=== PATIENT | male | born 1940 | race Caucasian/White ===

== ENCOUNTER 2022-11-19 08:32 | Day surgery (SDC) | payer OTHER ==
[~2022-11-19] VITALS: Ht 167.6 cm; Wt 103.6 kg
[~2022-11-19 08:32] MED LIST: ATOR40TA PO; Aspir 8181 MG PO; CALCIUM CIT 311 EACH PO; CLOP75 PO; GABA100 PO; LOSA25 PO; METO25ER; Norco 5-325 Ta1 EACH PO; Prinivil10 MG PO; Revatio20 MG PO; TICA90TA PO
--- NOTE | 2022-11-19 09:25 | NUR ---
CRACKLES AUSCULTATED TO POSTERIOR RIGHT LOWER LOBE. DR JACOB NOTIFIED.
--- NOTE | 2022-11-19 17:58 | NUR ---
SHIFT SUMMARY POD [address] SUMMERS. PATIENT ARRIVED TO ROOM AT 1400 FROM PACU. DROWSY, POST OP VITALS STABLE. MEDICATED FOR PAIN PER EMAR. LEFT HIP INCISION C/D/I. PATIENT NOT OUT OF BED AT THIS TIME AND NO VOID YET, WILL CONTINUE TO MONITOR. TOLERATING REGULAR DIET AND LIQUIDS. WIGGLES LEFT TOES AND ANKLE, REPORTS FULL SENSATION TO LEG.
[2022-11-20 04:23] LABS: BASOPHILS ABSOLUTE AUTO 0.03 K/mm3 (0.00-0.23); BASOPHILS PERCENT AUTO 0 % (0-2); EOSINOPHILS PERCENT AUTO 0 % (0-6); Hematocrit 39.9 % (37.0-53.0); Hemoglobin 13.5 g/dL (13.5-17.5); IMMATURE GRAN ABSOLUTE AUTO 0.12 K/mm3 (0.00-0.10); IMMATURE GRAN PERCENT AUTO 1 % (0-1); LYMPHOCYTES PERCENT AUTO 9 % (21-46); MONOCYTES ABSOLUTE AUTO 1.45 K/mm3 (0.16-1.47); MONOCYTES PERCENT AUTO 7 % (4-13); Mean Corpuscular HGB 30.8 pg (26.0-34.0); Mean Corpuscular HGB Conc 33.8 g/dL (31.5-36.5); Mean Corpuscular Volume 91 fL (80-100); NEUTROPHILS ABSOLUTE AUTO 16.33 K/mm3 (1.96-9.15); NEUTROPHILS PERCENT AUTO 83 % (41-73); Platelet Count 198 K/mm3 (150-400); RDW Standard Deviation 47.4 fL (35.1-46.3); Red Blood Cell Count 4.39 M/mm3 (4.30-5.90); White Blood Cell Count 19.63 K/mm3 (4.00-11.30)
--- NOTE | 2022-11-20 04:34 | NUR ---
SHIFT SUMMARY NO ACUTE CHANGES. PT RESTED WELL IN RECLINER CHAIR. DRESSING TO LEFT HIP REMAINS CDI WITH POLAR PACK IN PLACE. 2 KADIE/TYLENOL/TORADOL FOR PAIN MANAGEMENT. UP WITH 1 MINIMAL ASSIST USING FWW + GB TO BRP. VOIDING. LEILA PO. PLAN FOR PT/OT EVAL TODAY AND DISCHARGE HOME. USES CALL LIGHT APPROPRIATELY.
[2022-11-20 04:55] LABS: Bun/Creatinine Ratio 16.8 (12.0-20.0); Calcium, Blood 8.5 mg/dL (8.5-10.1); Creatinine, Blood 1.13 mg/dL (0.60-1.20); Potassium, Blood 4.9 mmol/L (3.5-5.5)
[2022-11-20] MEDS ORDERED: ACET500 PO (09:50)
[2022-11-20] MEDS ORDERED: OXYC5 PO (09:50)
--- NOTE | 2022-11-20 10:47 | NUR ---
DISCHARGE SUMMARY PATIENT ALERT AND ORIENTED. SBA TO AMBULATE IN ROOM AND HALLS WITH FWW. CLEARED BY PHYSICAL THERAPY. TOLERATING REGULAR DIET AND LIQUIDS. VOIDING WELL. INCISION TO LEFT HIP WNL AND C/D/I. PAIN CONTROLLED WITH PO PAIN MEDS. DISCHARGE ORDER IN CHART. DISCHARGE EDUCATION GIVEN ON NEW MEDS, ACTIVITY, INCISION CARE, AND FOLLOW UP APPTS WITH PT AND ORTHO. IV'S DC'D WNL. PATIENT LEFT UNIT FOR HOME WITH SPOUSE VIA WHEELCHAIR AT 1040.
== END 2022-11-20 10:48 | disposition home or self-care (01) ==
LOC: ORSCMMR 08:32 → ORD 10:45 → ORSCMMR 10:45 → SURS 15:27 → ORSCMMR 11-20 10:48 → ORD 01-14 07:30
PROVIDERS: Orthopaedic Surgery
PROC: 0SRB0JA Replacement of Left Hip Joint with Synthetic Substitute, Uncemented, Open Approach (ICD-10-PCS; principal; 2022-11-19 10:45)
DX: M16.12 Unilateral primary osteoarthritis, left hip (principal); I10 Essential (primary) hypertension; Z85.46 Personal history of malignant neoplasm of prostate; E66.9 Obesity, unspecified; Z68.34 Body mass index [BMI] 34.0-34.9, adult; I25.10 Atherosclerotic heart disease of native coronary artery without angina pectoris; Z87.891 Personal history of nicotine dependence; E78.00 Pure hypercholesterolemia, unspecified; Z79.899 Other long term (current) drug therapy
CPT/HCPCS: 36415; 72170; 80048; 83735; 85025; 97110; 97116; 97161; 97530; A9270; C1713; C1776; J0171; J0690; J0735; J1100; J1885; J2250; J2405; J2704; J2795; J3010; J7120

== ENCOUNTER 2023-07-09 11:31 | Observation (INO) | payer OTHER ==
[~2023-07-09] VITALS: Ht 170.2 cm; Wt 101.8 kg
[2023-07-09] VITALS (14 sets, daily range): BP systolic 103–150; BP diastolic 56–76
[~2023-07-09 11:31] MED LIST changes: +ACET500 PO; +OXYC5 PO
--- NOTE | 2023-07-09 12:07 | NUR ---
ARRIVAL TO SURGICAL FLOOR ALERT, ORIENTED. STEADY GAIT. AMBULATED TO UNIT. REPORTS ONLY SMALL AMOUNT OF WATER THIS AM w/ MORNING PILLS. HAS NOT ATE OR DRANK. SINCE LAST NIGHT OTHER THAN THAT. DR LU UPDATED & DR ERICKSON NOTIFIED.
[2023-07-09] MEDS ORDERED: Norco 5-325 Ta1 EACH PO (12:10)
--- NOTE | 2023-07-09 13:33 | NUR ---
[facility]
--- NOTE | 2023-07-09 15:47 | NUR ---
07/09/23 1547 Randi Flynn CHOLANGIOGRAM COMPLETED. ISOVUE 300 USED FOR CONTRAST.
--- NOTE | 2023-07-09 17:09 | NUR ---
POST OP RETURN TO SURGICAL UNIT PLEASANT & ALERT. ABD SOFT, BLOATED w/ 4 LAP SITES COVERED w/ GAUZE & TEGADERM. NO DRNG OR SHADOWING NOTED. LUNGS CLEAR BUT DIMINISHED IN BASES. DENIES N/V; CLEAR LQ's GIVEN. DENIES PAIN.
[2023-07-10 00:35] VITALS: BP 136/70
[2023-07-10 03:17] VITALS: BP 115/61
--- NOTE | 2023-07-10 04:13 | NUR ---
SHIFT SUMMARY NO ACUTE CHANGES TO REPORT OVERNIGHT, PT POD 0 LAP NAM. HE DONE WELL OVERNIGHT, HE HAS VOIDED AND IS TOLEARING PO INTAKE. PT DENIES PAIN. RESTS T/O THE SHIFT AND DENIES NEEDS. LAP SITES WNL. PLAN IS FOR DC TODAY.
[2023-07-10 05:14] LABS: Albumin, Blood 2.9 g/dL (3.4-5.0); Albumin/Globulin Ratio 0.8 (0.8-1.8); Bilirubin, Total 0.5 mg/dL (0.1-1.0); Bun/Creatinine Ratio 17.7 (12.0-20.0); Calcium, Blood 8.8 mg/dL (8.5-10.1); Creatinine, Blood 1.13 mg/dL (0.60-1.20); Globulin, Blood 3.8 g/dL (2.2-4.0); Potassium, Blood 4.6 mmol/L (3.5-5.5); Total Protein, Blood 6.7 g/dL (6.4-8.2)
[2023-07-10 07:19] VITALS: BP 120/59
--- NOTE | 2023-07-10 09:23 | NUR ---
DISCHARGE EATING, DRINKING, & PASSING GAS. DENIES PAIN. ESCORTED OUT VIA WC.
== END 2023-07-10 09:27 | disposition home or self-care (01) ==
LOC: SURS 11:35 → UNDOADMOB 11:50 → SURS 11:50
PROVIDERS: Surgery; ADMIT Internal Medicine
PROC: 0FT44ZZ Resection of Gallbladder, Percutaneous Endoscopic Approach (ICD-10-PCS; principal; 2023-07-09 14:30)
PROC: BF121ZZ Fluoroscopy of Gallbladder using Low Osmolar Contrast (ICD-10-PCS; principal; 2023-07-09 14:30)
DX: K80.00 Calculus of gallbladder with acute cholecystitis without obstruction (principal); I25.10 Atherosclerotic heart disease of native coronary artery without angina pectoris; E78.5 Hyperlipidemia, unspecified; I10 Essential (primary) hypertension; Z87.891 Personal history of nicotine dependence; R10.11 Right upper quadrant pain; R10.13 Epigastric pain; K76.0 Fatty (change of) liver, not elsewhere classified; R93.2 Abnormal findings on diagnostic imaging of liver and biliary tract
CPT/HCPCS: 36415; 74300; 76705; 80053; 85025; 88304; 93005; 93010; A9270; C1894; G0378; G0379; J0694; J1100; J1885; J2250; J2405; J2704; J2710; J3010; J7120

== ENCOUNTER 2023-07-30 08:59 | Day surgery (SDC) | payer OTHER ==
[~2023-07-30] VITALS: Ht 170.2 cm; Wt 96.7 kg
[2023-07-30 11:01] VITALS: BP 97/66
== END 2023-07-30 10:58 | disposition home or self-care (01) ==
LOC: ORSCSDS 08:59
PROVIDERS: Surgery
PROC: 0DB58ZX Excision of Esophagus, Via Natural or Artificial Opening Endoscopic, Diagnostic (ICD-10-PCS; principal; 2023-07-30 10:15)
DX: K21.9 Gastro-esophageal reflux disease without esophagitis (principal); R10.13 Epigastric pain; C15.9 Malignant neoplasm of esophagus, unspecified; K44.9 Diaphragmatic hernia without obstruction or gangrene; I10 Essential (primary) hypertension; E78.5 Hyperlipidemia, unspecified; Z87.891 Personal history of nicotine dependence; Z79.899 Other long term (current) drug therapy; C78.7 Secondary malignant neoplasm of liver and intrahepatic bile duct; I70.0 Atherosclerosis of aorta; I25.10 Atherosclerotic heart disease of native coronary artery without angina pectoris; I51.7 Cardiomegaly; K76.9 Liver disease, unspecified; K57.30 Diverticulosis of large intestine without perforation or abscess without bleeding; D73.89 Other diseases of spleen; K76.89 Other specified diseases of liver; M47.819 Spondylosis without myelopathy or radiculopathy, site unspecified; Z95.1 Presence of aortocoronary bypass graft; Z96.642 Presence of left artificial hip joint
CPT/HCPCS: 70491; 71260; 74177; 88305; 88360; J2704; J7120; Q9967

== ENCOUNTER 2023-08-15 07:24 | Day surgery (SDC) | payer OTHER ==
[~2023-08-15] VITALS: Ht 170.2 cm; Wt 90.0 kg
[2023-08-15 09:57] VITALS: BP 104/65
--- NOTE | 2023-08-15 10:08 | NUR ---
08/15/23 Kaci Lua PT'S CALLED [facility] TO SPEAK TO LC PER DR LU BUT WAS ADVISED LC WAS UNAVAILABLE. THE PERSON SHE SPOKE TO INITIALLY TOLD HER FIRST AVAILABLE APPT WITH LC WAS ON 08/21/23. THE HANDED ME THE PHONE AND I SPOKE TO THE WOMAN AND ADVISED HER THAT PT JUST HAD PEG TUBE PLACED TODAY AND THAT DR LU WOULD LIKE PT TO BE SEEN EITHER TODAY OR POSSIBLY TOMORROW AT THE LATEST FOR PEG EDUCATION SO THAT HE CAN START TUBE FEEDINGS MELO. SHE VERBALIZED UNDERSTANDING. SAYS SHE WILL SPEAK TO LC SOON SHE FINISHES WITH HER CURRENT PATIENT AND WILL HAVE LC CALL AND SPEAK TO PATIENT AND TO SEE WHEN SHE CAN GET PATIENT IN. ADVISED OF THIS AND ALSO ADVISED TO CALL [facility] BACK IF SHE DOES NOT HEAR FROM LC. THE STATED THAT TOMORROW WOULD ACTUALLY BE BETTER FOR THEM THAN TODAY. IMMEDIATELY PRIOR TO DISCHARGE PT STARTED WRETCHING SMALL AMOUNT OF BLOODY SECRETIONS. PER , PATIENT HAS BEEN HAVING LOTS OF N/V, UNABLE TO KEEP ANYTHING DOWN. PT HAS SOME TYPE OF ANTIEMETIC AT HOME BUT BELIEVES IT IS NOT SUBLINGUAL. RN CLAUDIO GARCIA CALLED PATIENT'S PCP OFFICE TO REQUEST RX FOR SUBLINGUAL ZOFRAN. RECEIVED RECORDING. CLAUDIO LEFT A DETAILED MESSAGE REQUESTING THAT A RX FOR SUBLINGUAL ZOFRAN BE SENT TO PATIENT'S PHARMACY, [facility] [address]. ADVISED PT'S THAT IF SHE DOES NOT HEAR BACK FROM PCP OFFICE TO CALL THEM AGAIN IN ABOUT HALF AN HOUR TO AN HOUR. SHE VERBALIZED UNDERSTANDING.
== END 2023-08-15 09:42 | disposition home or self-care (01) ==
LOC: ORSCSDS 07:24
PROVIDERS: Surgery
PROC: 0DJ08ZZ Inspection of Upper Intestinal Tract, Via Natural or Artificial Opening Endoscopic (ICD-10-PCS; principal; 2023-08-15 08:45)
DX: C15.8 Malignant neoplasm of overlapping sites of esophagus (principal); R13.10 Dysphagia, unspecified; I10 Essential (primary) hypertension; E78.5 Hyperlipidemia, unspecified; I25.10 Atherosclerotic heart disease of native coronary artery without angina pectoris; Z79.82 Long term (current) use of aspirin; Z79.899 Other long term (current) drug therapy
CPT/HCPCS: C1769; J0690